=== PATIENT | female | born 1990 | race African-American/Black ===

== ENCOUNTER 2019-02-04 18:35 | Emergency (ER) | payer BC ==
[2019-02-04 19:10] VITALS: BP 115/70; PULSE 99; TEMP 97.8; BMI 22.8
[2019-02-04] MEDS ORDERED: AMOX TR/POT CLAV 875MG/125MG TABLETS (FP) PO ONE (19:21)
--- NOTE | 2019-02-04 19:24 | PDOC ---
Documentation entered by Juan Hartman SCRIBE, acting as scribe for Gavino Irby MD. Gavino Irby MD: This documentation has been prepared by the Devan herrera Xhesika, SCRIBE, under my direction and personally reviewed by me in its entirety. I confirm that the documentation accurately reflects all work, treatment, procedures, and medical decision making performed by me. History of Present Illness - General Chief Complaint: Bite Stated Complaint: DOG BITE Time Seen by Provider: 02/04/19 19:14 History Source: Patient Exam Limitations: No Limitations - History of Present Illness Initial Comments: 02/04/19 19:25 The patient is a 28 year old female, with no significant past medical history of who presents to the emergency department with a dog bite at 5pm. The patient states her friends dog bit her R calf. Patient states dogs immunizations are up to date. PAST MEDICAL HISTORY: no significant history PAST SURGICAL HISTORY: no significant history FAMILY HISTORY: no pertinent history SOCIAL HISTORY: Pt lives with family and is employed. MEDICATIONS: reviewed ALLERGIES: As per nursing notes Past History - Past Medical History Allergies/Adverse Reactions: Allergies Allergy/AdvReac Type Severity Reaction Status Date / Time No Known Allergies Allergy Verified 02/04/19 18:53 Home Medications: Ambulatory Orders Amoxicillin/Potassium Clav [Augmentin 875-125 Tablet] 1 each PO BID #14 tablet 02/04/19 COPD: No - Suicide/Smoking/Psychosocial Hx Smoking History: Never smoked Hx Alcohol Use: No Drug/Substance Use Hx: No Review of Systems - Review of Systems Able to Perform ROS?: Yes Comments:: 02/04/19 19:26 General: No fevers or chills, no weakness, no weight loss HEENT: No change in vision. No sore throat,. No ear pain CardioVascular: No chest pain or shortness of breath Respiratory:No cough, or wheezing. Gastrointestinal: no nausea, vomiting, diarrhea or constipation, No rectal bleeding Genitourinary: No dysuria, hematuria, or frequency Musculoskeletal:(+) R calf dog bite. No joint or muscle pain or swelling Neurologic: No headache, vertigo, dizziness or loss of consciousness Psychiatric: nor depression Skin: (+) R calf dog bite. Endocrine: no increased thirst or abnormal weight change Allergic: no skin or latex allergy All other systems reviewed and normal *Physical Exam - Vital Signs Last Vital Signs Temp Pulse Resp BP Pulse Ox 97.8 F 99 H 16 115/70 100 02/04/19 18:53 02/04/19 18:53 02/04/19 18:53 02/04/19 18:53 02/04/19 18:53 - Physical Exam Comments: 02/04/19 19:26 GENERAL: The patient is awake, alert, and fully oriented, in no acute distress. HEAD: Normal with no signs of trauma. EYES: Pupils equal, round and reactive to light, extraocular movements intact, sclera anicteric, conjunctiva clear. EXTREMITIES: Normal range of motion, no edema. NEUROLOGICAL: Normal speech, normal gait. PSYCH: Normal mood, normal affect. SKIN: (+) R calf 2 small lateral wounds. (+) Some ecchymosis and contusion to surrounding area. Warm, Dry, normal turgor. *DC/Admit/Observation/Transfer Diagnosis at time of Disposition: Dog bite of calf Qualifiers: Encounter type: initial encounter Laterality: right Qualified Code(s): S81.851A - Open bite, right lower leg, initial encounter - Discharge Dispostion Disposition: HOME Condition at time of disposition: Good Decision to Admit order: No - Prescriptions Prescriptions: Amoxicillin/Potassium Clav [Augmentin 875-125 Tablet] 1 each PO BID #14 tablet - Referrals - Patient Instructions Printed Discharge Instructions: How to Care for a Domestic Animal Bite Additional Instructions: Take Augmentin 1 tablet twice a day for 7 days to prevent infection. The area with some peroxide and reapply bacitracin and a Band-Aid once a day until scabbed over. Return to the emergency department immediately with ANY new, persistent or worsening symptoms. Continue any medications as previously prescribed by your physician. You should follow up with your primary doctor as soon as possible regarding today's emergency department visit. . Please make sure your doctor reviews the results of your emergency evaluation. Thank you for coming to the Emergency Department today for your care. It was a pleasure to see you today. Please note that your evaluation is INCOMPLETE until you follow-up with your doctor. - Post Discharge Activity
[2019-02-04] MEDS ORDERED: DIPHTH,PERTUSS(ACELL),TET 0.5 ML DISP.SYRIN IM ONE ×2 (19:28→19:32)
[2019-02-04] MEDS ORDERED: AMOX TR/POT CLAV 875MG/125MG TABLETS (FP) ONE (19:31)
== END 2019-02-04 19:43 | disposition home or self-care (01) ==
LOC: FER 18:35
PROC: 3E0234Z Introduction of Serum, Toxoid and Vaccine into Muscle, Percutaneous Approach (ICD-10-PCS; principal; 2019-02-04)
DX: S81.851A Open bite, right lower leg, initial encounter (principal); W50.3XXA Accidental bite by another person, initial encounter; Y93.89 Activity, other specified; Y92.89 Other specified places as the place of occurrence of the external cause
CPT/HCPCS: 90715; 99281-25

== ENCOUNTER 2023-11-13 10:48 | Emergency (ER) | payer BC ==
[2023-11-13 10:57] VITALS: BP 115/77; TEMP 99; BMI 23.8
[2023-11-13 11:12] VITALS: PULSE 85; RESP 20
[2023-11-13 11:56] LABS: HEMATOCRIT 25.8 % (32.4-45.2); HEMOGLOBIN 7.9 G/dL (10.7-15.3); MCH 22.6 pg (25.7-33.7); MCHC 30.7 g/dl (32.0-36.0); MEAN CELL VOLUME 73.5 fl (80-96); MEAN PLT VOLUME 10.9 fl (7.5-11.1); PLATELET COUNT 326.1 10^3/uL (134-434); RBC 3.51 10^6/uL (3.60-5.2); RDW 19.5 % (11.6-15.6); WHITE BLOOD COUNT 4.2 10^3/uL (4.0-10.8)
[2023-11-13 11:57] LABS: PROTHROMBIN TIME (PATIENT) 11.6 SEC (9.7-13.0)
[2023-11-13 11:59] LABS: ACTIVATED PTT 28.6 SECONDS (25.2-36.5)
[2023-11-13 12:00] LABS: PLATELET ESTIMATE ADEQUATE
[2023-11-13 12:05] LABS: ALBUMIN 4.5 g/dl (3.4-5.0); BILIRUBIN,TOTAL 0.4 mg/dl (0.2-1); CALCIUM 9.2 mg/dl (8.5-10.1); CREATININE 0.6 mg/dl (0.6-1.3); POTASSIUM 4.2 mmol/L (3.5-5.1); TOT PROT 7.1 g/dl (6.4-8.2)
== END 2023-11-13 12:31 | disposition home or self-care (01) ==
LOC: FER 10:48
DX: D50.0 Iron deficiency anemia secondary to blood loss (chronic) (principal); R53.83 Other fatigue; R53.1 Weakness
CPT/HCPCS: 36415; 80053; 84703; 85027; 85610; 85730; 86850; 86900; 86901; 99283-25